=== PATIENT | male | born 1970 | race Caucasian/White ===

== ENCOUNTER 2017-07-12 10:25 | Emergency (ER) | payer MEDICAID ==
[~2017-07-12] VITALS: Wt 79.2 kg
[2017-07-12] MEDS ORDERED: HYDR-906 PO (11:30)
[2017-07-12] MEDS ORDERED: IBUP800T25 PO (11:30)
[2017-07-12] MEDS ORDERED: KETOROLAC 30 MG INJ IM STA (11:31)
--- NOTE | 2017-07-12 11:33 | ERD ---
ER Documentation Chief Complaint Chief Complaint LEFT FOOT PAIN X6 DAYS HPI 47-year-old male presents with left foot pain that he has had for 7 days. There is no trauma. He tried taking medications that he had from [facility] for pain but it did not help. There is no redness. He is ambulatory. Pain is throbbing 8 out of 10. No radiating pain. No fever. ROS All systems reviewed and are negative except as per history of present illness. Medications Home Meds Active Scripts Hydrocodone/Acetaminophen ([place] 5-325 Tablet) 1 Each Tablet, 1 TAB PO Q6H Y for PAIN, #20 TAB Prov:MICHAEL IBARRA PA-C 07/12/17 Ibuprofen* (Motrin*) 800 Mg Tab, 800 MG PO Q6, #30 TAB Prov:MICHAEL IBARRA PA-C 07/12/17 Allergies Allergies: Coded Allergies: No Known Allergy (Unverified , 05/27/15) PMhx/Soc History of Surgery: No Anesthesia Reaction: No Hx Neurological Disorder: No Hx Respiratory Disorders: No Hx Cardiac Disorders: No Hx Psychiatric Problems: No Hx Miscellaneous Medical Probl: No Hx Alcohol Use: No Hx Substance Use: No Hx Tobacco Use: No Smoking Status: Former smoker FmHx Family History: No diabetes Physical Exam Vitals Vital Signs Date Time Temp Pulse Resp B/P Pulse Ox O2 Delivery O2 Flow Rate FiO2 07/12/17 10:30 97.3 71 18 178/95 100 Physical Exam INITIAL VITAL SIGNS: Reviewed by me GENERAL: Awake, alert and oriented x 4, well appearing, nontoxic, speaking in full sentences. No acute distress HEAD: Atraumatic NECK: Supple. No masses. Full range of motion. No meningismus. No midline tenderness. RESPIRATORY: Clear to auscultation bilaterally. Symmetric chest wall rise. No wheezing or rales. No accessory muscle use. CV: Regular rate and rhythm. No murmurs, rubs, or gallops. EXTREMITIES: Left foot has no erythema no edema, pedal pulse 2+, capillary refill less than 2 seconds, but no bony abnormalities, sensation to light touch is intact Results 24 hrs Current Medications Medications (Trade) Dose Ordered Sig/Andres Route PRN Reason Start Time Stop Time Status Last Admin Dose Admin Ketorolac Tromethamine (Toradol) 30 mg ONCE STAT IM 07/12/17 11:31 07/12/17 11:32 DC 07/12/17 11:37 Procedures/MDM 47-year-old male presents with left foot pain. Patient's blood pressure was elevated (>120/80) but appears stable without evidence of hypertension emergency or urgency. The patient was counseled about the risks of hypertension and urged to pursue outpatient monitoring and therapy within a week with their primary care physician. Vital signs are otherwise within normal limits. He is well-appearing in no distress. Examination is negative for any evidence of infection. He is neurovascularly intact. There is no trauma therefore no imaging was ordered. This is most likely plantar fasciitis versus sprain versus heel spur versus gout. Patient was given Toradol here and discharged with ibuprofen and [place]. Patient counseled regarding my diagnostic impression and care plan. Prior to discharge all questions answered. Pt agrees with treatment plan and understands strict return precautions. Pt is instructed to follow up with primary care provider within 24-48 hours. Precautionary instructions provided including instructions to return to the ER if not improving or for any worsening or changing symptoms or concerns. Departure Diagnosis: Primary Impression: Foot pain Condition: Stable Patient Instructions: Sprain Foot Additional Instructions: Llame al doctor MAYTE y miri moses STEVE PARA DENTRO DE 1-2 MILLIGAN.Dgale a la secretaria que nosotros le instruimos hacer esta steve.Avise o llame si hernandez condicin se empeora antes de la steve. Regresa aqui si peor o no mejor. MICHAEL IBARRA PA-C Jul 12, 2017 11:33
== END 2017-07-12 11:56 | disposition home or self-care (01) ==
LOC: FTE 10:25
DX: M79.672 Pain in left foot (principal); Z87.891 Personal history of nicotine dependence
CPT/HCPCS: 96372; J1885; Z7502

== ENCOUNTER 2018-05-29 08:54 | Emergency (ER) | END 2018-05-29 12:38 | disposition home or self-care (01) ==